=== PATIENT | female | born 1965 ===

== ENCOUNTER 2024-03-04 06:00 | Day surgery (SDC) | payer OTHER ==
[~2024-03-04 06:00] MED LIST: SYNTHROID75 MCG
[2024-03-04] MEDS ORDERED: CEFAZOLIN SODIUM 1,000 MG VIAL ONE (08:26)
[2024-03-04] MEDS ORDERED: POVIDONE-IODINE 118 ML BOTT TOP ONE (09:37)
[2024-03-04] MEDS ORDERED: NEOMYCIN/POLYMYXIN B/HYDROCORT 20 DR/ML BOTTLE OT ONE (09:37)
[2024-03-04] MEDS ORDERED: EPINEPHRINE HCL/PF 1 MG/ML AMPUL ONE (09:37)
[2024-03-04] MEDS ORDERED: CLINDAMYCIN PHOSPHATE 150 MG/ML (900mg) ONE (10:16)
[2024-03-04] MEDS ORDERED: DEXAMETHASONE SODIUM PHOSP/PF 10 MG/ML VIAL ONE (10:29)
[2024-03-04] MEDS ORDERED: DEXAMETHASONE SODIUM PHOSPHATE 4 MG/ML VIAL ONE (11:15)
[2024-03-04] MEDS ORDERED: ONDANSETRON HCL 2 MG/ML VIAL ONE (12:14)
[2024-03-04] MEDS ORDERED: LEVOFLOXACIN500 MG PO (12:39)
[2024-03-04] MEDS ORDERED: CORTISPORIN EAR10 M1 OTIC (12:40)
== END 2024-03-04 13:50 | disposition home or self-care (01) ==
LOC: CIR.AMB 06:00
PROVIDERS: ATTEND Otolaryngology Otology & Neurotology
DX: H70.12 Chronic mastoiditis, left ear (principal); H66.3X2 Other chronic suppurative otitis media, left ear; H72.02 Central perforation of tympanic membrane, left ear; E03.9 Hypothyroidism, unspecified; H52.10 Myopia, unspecified eye; J44.9 Chronic obstructive pulmonary disease, unspecified; Z88.6 Allergy status to analgesic agent